=== PATIENT | male | born 1940 | race Caucasian/White ===

== ENCOUNTER 2017-11-06 14:12 | Outpatient (CLI) | payer MEDICARE, OTHER ==
[~2017-11-06 14:12] MED LIST: Gadobenate Dimeglumine 529 MG/1 ML (20ML VIAL) ONE
--- NOTE | 2017-11-06 16:26 | RAD ---
LUMBAR SPINE SERIES TWO VIEWS: History: Low back pain. History of previous surgeries. Comparison: 07-09-14 FINDINGS: Post-operative changes of the spine are noted. This includes bilateral pedicle screw placement at the L3-4 level. Disc implant is seen within the intervening disc space. Post-operative changes are also noted at L2-3 with right sided screws traversing these disc levels and markers of the disc implant wi thin the confines of the disc level. There is also evidence for posterolateral fusion type changes. T he changes along the left SI joint are stable. Laminectomy changes at L5 are seen. IMPRESSION: Stable post op changes of the spine. POS: [facility]
--- NOTE | 2017-11-06 17:58 | RAD ---
CERVICAL SPINE SERIES FOUR VIEWS WITH FLEXION AND EXTENSION : 11/06/17 HISTORY: Patient having right hand numbness. The bones appear slightly demineralized but some of this appears technique related. There is severe d isc narrowing at C5-6 and C6-7 levels. There is restricted motion in flexion or extension of the lowe r cervical spine. Minimal anterolisthesis develops at C4-5 in flexion. IMPRESSION: Arthritic changes of the lower cervical spine. POS: [facility]
--- NOTE | 2017-11-06 18:31 | MRI ---
MRI CERVICAL SPINE NONCONTRAST: Date: 11/06/17 HISTORY: 77-year-old male with cervical radiculopathy. M54.12. COMPARISON: No prior MRIs of the cervical spine. FINDINGS: Most of the images are degraded by patient motion. Vertebral body heights are maintained. C1-2: No high grade central stenosis, as seen on sagittal images. C2-3: Only imaged on sagittal sequences. Not included on axial images. Central disc-osteophyte complex slig htly indents the ventral aspect of the spinal cord. Thickened ligamentum flavum almost contacts the p osterior aspect of the spinal cord. Without axial images, the degree of central spinal canal stenosis is difficult to estimate, but based on the sagittal images, it is at least moderate, and possibly se fernando. Mild to moderate bilateral degenerative facet changes. Very difficult to evaluate the degree of neural foraminal stenosis without axial images. C3-4: Broad based mild disc-osteophytic bar complex abuts the ventral surface of the spinal cord. Thickened ligamentum flavum. Overall moderate to severe central spinal canal stenosis. Bilateral uncinate proc ess osteophytes. Moderate left degenerative facet changes. Bilateral severe neural foraminal stenosis . C4-5: Broad based disc-osteophytic bar complex indents the ventral surface of the spinal cord. Thickened li gamentum flavum abuts the dorsal surface of the spinal cord. The CSF signal is almost completely effa sarai. Severe central spinal canal stenosis, worse than at the C3-4 level. Severe bilateral neural fora lasha stenosis, left greater than right. Moderate left degenerative facet changes. Right facet comple x not completely imaged. C5-6: Slight degenerative retrolisthesis of C5 on C6. Broad based disc-osteophytic bar complex indents the ventral surface of the spinal cord. No ligamentum flavum thickening. Moderate central spinal canal st enosis. Bilateral uncinate process osteophytes. Severe bilateral neural foraminal stenosis, right wor se than left. Right facet joint incompletely imaged. Mild left degenerative facet changes. C6-7: Ankylosis across obliterated disc space. Bilateral moderate size uncinate process osteophytes. Mild t o moderate right neural foraminal stenosis. Mild left neural foraminal stenosis. Ankylosis of the rig ht facet joint. Normal left facet joint. No central stenosis. C7-T1: Small right paracentral focal disc protrusion or disc-osteophyte complex. Mild bilateral degenerative facet changes. Ligamentum flavum thickening. Mild central spinal canal stenosis. Moderate bilateral neural foraminal stenosis. IMPRESSION: 1. 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 2. Ankylosis across the C6-7 (now obliterated) disc space, and ankylosis of right C6-7 facet joint. 3. High grade central spinal canal stenosis at all levels from C2-3 through C7-T1, except for C6-7 l evel. 4. Multilevel high grade bilateral neural foraminal stenosis, including severe. POS: [facility]
--- NOTE | 2017-11-06 18:49 | MRI ---
MRI OF THE LUMBAR SPINE WITH AND WITHOUT CONTRAST 11/06/17 COMPARISON: 07/20/15. HISTORY: Low back pain. Previous back surgery x9. TECHNIQUE: MRI of the lumbar spine is performed without and with intravenous gadolinium administration. Multiseq uential, multiplanar imaging is performed. FINDINGS: The previously noted edema at the L2-3 level is not evident. There is no significant STIR hyperintens ity to suggest vertebral body edema or ligamentous injury. Evaluation of the lumbar spine is limited by metallic susceptibility artifact at the L2, L3, L4 levels. There is fusion of the lumbar spine fro m L2-L3 through L5-S1. Overall, there is appropriate T1 marrow signal intensity of the lumbar vertebr ae. On the postcontrast images, no obvious abnormal enhancement. There is symmetric signal intensity of the psoas muscles. The visualized solid organs are unremarkabl e. The conus medullaris terminates at the L1 level. On the postcontrast images, there is no abnormal enh ancement within the thecal sac including the cauda equina. There is stable septation with two separat e T2 hyperintensities in the thecal sac at the L4-L5 level. The thecal sac is empty at the L3-L4 disc space level down to the visualized upper sacrum. The findings are similar to the previous examinatio n. T12-L1: No high grade central canal stenosis. Moderate bilateral neural foraminal narrowing. L1-L2: Generalized disc bulge, ligamentum flavum thickening and facet hypertrophy result in mild to m oderate central canal stenosis. A component of central canal stenosis appears to be due to posterior epidural fat. Severe bilateral neural foraminal narrowing. L2-L3: There appears to be fusion changes as well as posterior decompressive laminectomy defects. Mod erate central canal stenosis is suspected. Mild bilateral foraminal narrowing. L3-L4: There are fusion changes. The thecal sac appears deformed posteriorly and laterally. There is a T2 hyperintense lesion which causes the nerve roots to extend to the periphery of the central spina l canal. There is resultant severe deformity essentially stenosis of the thecal sac. Moderate bilater al foraminal narrowing. L4-L5: There appears to be a septated cystic lesion that occupies the majority of the central spinal canal. The nerve roots appear to be displaced laterally. Findings are similar to the previous examina tion. Neural foramina are patent bilaterally. Posterior decompressive laminectomy defects are identif ied. L5-S1: There is a T2 hyperintense lesion that occupies the majority of the central spinal canal displ aces the nerve roots laterally. Septation is noted. Posterior decompressive changes are noted. Mild b ilateral foraminal narrowing. IMPRESSION: 1. Essentially stable postsurgical changes. 2. Stable appearance of the central spinal canal with lateral displacement of the nerve roots. T he central spinal canal is occupied by predominantly T2 hyperintense lesion. Septations are identifie d. These septations do have some subtle components of enhancement. Findings maybe due to a stable cys tic mass within the central spinal canal vs. 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 POS: [facility]
== END 2017-11-06 14:13 | disposition home or self-care (01) ==
LOC: TBSIIMAG 14:12
PROVIDERS: ATTEND Neurological Surgery
DX: M47.22 Other spondylosis with radiculopathy, cervical region (principal); M54.16 Radiculopathy, lumbar region; M89.9 Disorder of bone, unspecified; M50.10 Cervical disc disorder with radiculopathy, unspecified cervical region; M43.22 Fusion of spine, cervical region; M48.02 Spinal stenosis, cervical region; M99.81 Other biomechanical lesions of cervical region; Z98.890 Other specified postprocedural states
CPT/HCPCS: 72050; 72110; 72141; 72158; 82565; A9579

== ENCOUNTER 2019-04-01 13:17 | Inpatient (IN) | payer MEDICARE ==
[2019-04-01 14:06] LABS: #Basophils 0.1 thou/uL (0.0-0.2); #Eosinphils 0.4 thou/uL (0.0-0.7); #Lymphocytes 1.2 thou/uL (1.20-3.40); #Monocytes 0.5 thou/uL (0.11-0.59); #Neutrophils 7.7 thou/uL (1.40-6.50); %Basophils 0.8 % (0.0-1.0); %Eosinophils 3.7 % (0.0-10.0); %Lymphocytes 12.6 % (21.0-51.0); %Monocytes 5.1 % (0.0-10.0); %Neutrophils 77.8 % (42.0-75.0); Hemoglobin 12.5 g/dL (14.0-18.0); Mean Corpuscular HGB CONC 34.6 g/dL (32.0-36.0); Mean Corpuscular Hemoglobin 34.6 pg (27.0-31.0); Mean Corpuscular Volume 99.8 fL (78.0-98.0); Platelet Count 367 thou/uL (130-400); RBC Distribution Width 12.1 % (11.5-14.5); Red Blood Cell (RBC) Count 3.62 mill/uL (4.70-6.10); White Blood Cell (WBC) Count 9.9 thou/uL (4.8-10.8)
--- NOTE | 2019-04-01 14:06 | RAD ---
EXAM: Single view of the chest HISTORY: Cough COMPARISON: 09/13/2014 FINDINGS: Single view of the chest shows a normal sized cardiomediastinal silhouette. There is no ind[place] dence of consolidation, mass, or pleural effusion. The bones are unremarkable. IMPRESSION: No evidence of acute cardiopulmonary disease
[2019-04-01 14:31] LABS: ALT (SGPT) 23 U/L (8-55); AST (SGOT) 21 U/L (5-34); Albumin 3.4 g/dL (3.4-4.8); Alkaline Phosphatase 132 U/L (40-110); Anion Gap 12 mmol/L (10-20); BUN (Urea Nitrogen) 20 mg/dL (8.4-25.7); Bilirubin, Total 0.5 mg/dL (0.2-1.2); Calc. Creatinine Clearance 0 mL/min (70-130); Calcium 8.4 mg/dL (7.8-10.44); Carbon Dioxide 24 mmol/L (23-31); Chloride 99 mmol/L (98-107); Estimated GFR-MDRD 51; Globulin 2.8 g/dL (2.4-3.5); Glucose 480 mg/dL (83-110); Potassium 4.7 mmol/L (3.5-5.1); Protein, Total 6.2 g/dL (5.8-8.1); Sodium 130 mmol/L (136-145)
[2019-04-01 15:34] LABS: Magnesium 1.7 mg/dL (1.6-2.6)
--- NOTE | 2019-04-01 15:47 | CT ---
CT head noncontrast HISTORY: Weakness. Fall. COMPARISON: 03/16/2015. FINDINGS: There is no evidence of acute intracranial hemorrhage. Now within the posterolateral aspect of the left cerebellar hemisphere is a well-circumscribed, somewhat lobular focus of decreased density and measures up to 1.5 cm length by 0.6 cm width. Involving the rocky just to the left of midl ine, a 0.6 cm ill-defined focus of decreased density has occurred since the prior exam. Chronic ischemic small vessel disease is apparent throughout the periventricular white matter of each cerebral hemisphere. No significant mass effect. Ventricles are within normal limits. Visualized paranasal sinuses remain well aerated. There is calcification within the arterial structur es. IMPRESSION: Since the 2016 exam, small infarcts have appeared at the rocky and left cerebellar hemisph ere. No acute process is reliably demonstrated on noncontrast enhanced CT. Prominent chronic ischemic small vessel disease. Atherosclerosis.
[2019-04-01 16:41] LABS: Bacteria/HPF None Seen HPF (None Seen); Bilirubin Negative (Negative); Blood, Urine Negative (Negative); Clarity Clear (Clear); Glucose, Urine (Dipstick) Greater than 1000 mg/dL (Negative); Leukocyte Negative Leu/uL (Negative); Nitrite Negative (Negative); Protein, Urine (Dipstick) 200 mg/dL (Neg-Trace); RBC/HPF None Seen HPF (0-3); Squamous Epithelial None Seen HPF (0-3); Urobilinogen Normal mg/dL (Less than 2); WBC/HPF 0-3 HPF (0-3)
[2019-04-01] MEDS ORDERED: Aspirin Chewable 81 MG TAB ONE (16:52)
[2019-04-01] MEDS ORDERED: hydrALAZINE 20 MG/ML VIAL ONE (17:22)
[2019-04-01] MEDS ORDERED: Labetalol HCl 100 MG/20 ML VIAL SLOW IVP PRN (18:05)
[2019-04-01] MEDS ORDERED: hydrALAZINE 20 MG/ML VIAL SLOW IVP PRN (18:05)
[2019-04-01] MEDS ORDERED: Dextrose 50% Abboject 50 ML SYRINGE SLOW IVP PRN (18:13)
[2019-04-01] MEDS ORDERED: Dextrose 5% in Water 1,000 ML IV PRN (18:13)
[2019-04-01] MEDS ORDERED: Insulin Regular 300 UNITS/3 ML VIAL SC PRN (18:13)
--- NOTE | 2019-04-01 18:32 | PDOC.HHP ---
Hospitalist HPI - History of Present Illness Frequent falls History of Present Illness: PCP: Unknown The patient is a poor historian and no family was at bedside, so the majority of information was taken from the ER note. The patient is a 79/M with PMH significant for HTN (non comliance), HLD, DMII, and chronic back pain that presents to ER for above complaint. Apparently the patient was found down at home by his caregiver and EMS was called. EMS reported patient to be to weak to stand and slow to respond verbally to commands. The patient was afebrile, hypertensive 202/98, with Blood glucose of 293. The patient was given 500 ml saline bolus and brought to the ER. ED Course: BP: 189/104, Pulse: 72, Resp: 16, Pain: 0, O2 sat: 98 on (Room Air), Time: 2019 13:27 EKG NSR, RBBB, no ST elevations CXR negative for acute cardiopulmonary process Troponin negative CT brain: Since the 2016 exam, small infarcts have appeared at the rocky and left cerebellar hemisphere. No acute process is reliably demonstrated on noncontrast enhanced CT. Na 130, baseline 138 creatinine 1.35, baseline 1.16 Hydralazine 10mg IVP Given ASA 324 and 1L NS Hospitalist ROS - Review of Systems ROS unobtainable: due to mental status (No family at bedside.) Hospitalist History - Past Medical History Source: RN notes reviewed Cardiac: reports: HTN, Hyperlipidemia Musculoskeletal: reports: Other (Chronic back pain) Endocrine: reports: Diabetes - Past Surgical History Past Surgical History: reports: Cataract Removal Other Surgical History: Back x 9, left hand, right writ, left knee, bilateral elbows - Family History Other Family History: unable to obtain d/t AMS - Social History Smoking Status: Smokes 0-10 cigs daily (according to ER note) Tobacco Type: cigarettes Alcohol: reports: None Drugs: reports: none Living Situation: Alone Occupation: lives in [place] Activity level: independent ambulation (frequent falls) - Exam General Appearance: NAD, awake alert Eye: PERRL, anicteric sclera ENT: no oropharyngeal lesions, moist mucosa ENT - other findings: abrasions to forehead Neck: supple, no JVD, no thyromegaly, no lymphadenopathy Heart: RRR, no murmur, no gallops, no rubs, normal peripheral pulses Respiratory: CTAB, no wheezes, no rales, no ronchi Gastrointestinal: soft, non-tender, non-distended, normal bowel sounds, no guarding, no rigidity Extremities: no cyanosis, no edema Skin: no rashes Skin - other findings: Multiple abrasions to forehead, bilateral lower extremities Neurological: cranial nerve grossly intact, no focal deficits Neurological - other findings: GCS 15, A&O x3, difficulty with remote memory Psychiatric: oriented to person, oriented to place, flat affect Hospitalist Results - Labs Result Diagrams: 04/01/19 13:59 04/01/19 13:59 Lab results: WBC 9.9 thou/uL (4.8-10.8) 04/01/19 13:59 Hgb 12.5 g/dL (14.0-18.0) L 04/01/19 13:59 Hct 36.2 % (42.0-52.0) L 04/01/19 13:59 MCV 99.8 fL (78.0-98.0) H 04/01/19 13:59 Plt Count 367 thou/uL (130-400) 04/01/19 13:59 Neutrophils % 77.8 % (42.0-75.0) H 04/01/19 13:59 Sodium 130 mmol/L (136-145) L 04/01/19 13:59 Potassium 4.7 mmol/L (3.5-5.1) 04/01/19 13:59 Chloride 99 mmol/L (98-107) 04/01/19 13:59 Carbon Dioxide 24 mmol/L (23-31) 04/01/19 13:59 BUN 20 mg/dL (8.4-25.7) 04/01/19 13:59 Creatinine 1.35 mg/dL (0.7-1.3) H 04/01/19 13:59 Glucose 480 mg/dL (83-110) H 04/01/19 13:59 Calcium 8.4 mg/dL (7.8-10.44) 04/01/19 13:59 Total Bilirubin 0.5 mg/dL (0.2-1.2) 04/01/19 13:59 AST 21 U/L (5-34) 04/01/19 13:59 ALT 23 U/L (8-55) 04/01/19 13:59 Alkaline Phosphatase 132 U/L (40-110) H 04/01/19 13:59 Creatine Kinase 114 U/L (30-200) 04/01/19 13:59 Troponin I 0.020 ng/mL (< 0.028) 04/01/19 13:59 Serum Total Protein 6.2 g/dL (5.8-8.1) 04/01/19 13:59 Albumin 3.4 g/dL (3.4-4.8) 04/01/19 13:59 Lipase 36 U/L (8-78) 04/01/19 13:59 Urine Ketones Negative mg/dL (Negative) 04/01/19 14:26 Urine Blood Negative (Negative) 04/01/19 14:26 Urine Nitrite Negative (Negative) 04/01/19 14:26 Ur Leukocyte Esterase Negative Dawn/uL (Negative) 04/01/19 14:26 Urine RBC None Seen HPF (0-3) 04/01/19 14:26 Urine WBC 0-3 HPF (0-3) 04/01/19 14:26 Ur Squamous Epith Cells None Seen HPF (0-3) 04/01/19 14:26 Urine Bacteria None Seen HPF (None Seen) 04/01/19 14:26 Additional comment: Laboratory Tests 04/01/19 13:59 Magnesium 1.7 Creatine Kinase 114 Lipase 36 - EKG Interpretation EKG: NSR RBB - Radiology Interpretation CT scan - head Status: report reviewed by me Chest x-ray Status: report reviewed by me Hospitalist H&P A/P - Plan Plan: Impression: Generalized weakness, multiple falls Hyponatremia, mild 130 Dehydration, mild HTN, chronic HLD, chronic DM II, chronic Tobacco abuse Chronic back pain Plan: athletic monitor MRI brain, echo, CD US check NH4, RPR, serum/urine DS, B12 and folate, TSH, FLP, HA1C orthostatics Consult neurology Consult PT/OT Continue ASA daily AC/HS accuchecks and mild sliding scale smoking cessation Restart home meds when reconciled CMP and CBC in am Full Code No DPOA at this time.
[2019-04-01 18:37] LABS: Acetaminophen Less than 6.0 mcg/mL (10.0-30.0); Alcohol Less than 10 mg/dL (Less than 10); Salicylate Less than 8.0 mg/dL (15.0-30.0)
[2019-04-01] MEDS ORDERED: Acetaminophen 325 MG TAB PO PRN (19:23)
[2019-04-01] MEDS ORDERED: Acetaminophen 650 MG Suppository PR PRN (19:23)
[2019-04-01] MEDS ORDERED: HYDROcodone/Acetaminophen 5/325 mg Tablet PO PRN ×2 (21:48)
[2019-04-01] MEDS ORDERED: Ondansetron PF 4 MG/2 ML Vial IVP PRN (21:48)
[2019-04-01] MEDS ORDERED: Ondansetron ODT 4 MG TAB SL PRN (21:48)
[2019-04-01] MEDS: Rosuvastatin 20 MG TAB PO SCH (22:41)
[2019-04-01 23:45] VITALS: BMI 17.6
[2019-04-01 23:51] LABS: Amphetamine Not Detected (NotDetected); Barbiturates Screen Not Detected (NotDetected); Benzodiazepine Screen Not Detected (NotDetected); Cocaine Metabolite Screen Not Detected (NotDetected); Medtox Control Line Valid? VALID (VALID); Medtox Reader # READER 4; Methadone Not Detected (NotDetected); Methamphetamine Not Detected (NotDetected); Opiate Screen Not Detected (NotDetected); Oxycodone Screen Not Detected (NotDetected); Phencyclidine (PCP) Not Detected (NotDetected); THC/Cannabinoid Screen Not Detected (NotDetected); Tricyclic Screen Not Detected (NotDetected)
[2019-04-02 04:42] LABS: #Basophils 0.1 thou/uL (0.0-0.2); #Eosinphils 0.5 thou/uL (0.0-0.7); #Lymphocytes 2.2 thou/uL (1.20-3.40); #Monocytes 0.9 thou/uL (0.11-0.59); #Neutrophils 9.1 thou/uL (1.40-6.50); %Basophils 0.7 % (0.0-1.0); %Lymphocytes 17.4 % (21.0-51.0); %Monocytes 6.7 % (0.0-10.0); %Neutrophils 71.2 % (42.0-75.0); Hemoglobin 11.9 g/dL (14.0-18.0); Mean Corpuscular HGB CONC 33.9 g/dL (32.0-36.0); Mean Corpuscular Hemoglobin 33.2 pg (27.0-31.0); Mean Corpuscular Volume 97.9 fL (78.0-98.0); Platelet Count 372 thou/uL (130-400); Red Blood Cell (RBC) Count 3.58 mill/uL (4.70-6.10); White Blood Cell (WBC) Count 12.8 thou/uL (4.8-10.8)
[2019-04-02 05:02] LABS: ALT (SGPT) 20 U/L (8-55); AST (SGOT) 19 U/L (5-34); Albumin 3.3 g/dL (3.4-4.8); Alkaline Phosphatase 120 U/L (40-110); Anion Gap 13 mmol/L (10-20); BUN (Urea Nitrogen) 16 mg/dL (8.4-25.7); Bilirubin, Total 0.6 mg/dL (0.2-1.2); Calc. Creatinine Clearance 43 mL/min (70-130); Calcium 8.5 mg/dL (7.8-10.44); Carbon Dioxide 21 mmol/L (23-31); Cardiac Risk 2.5 (Less than 4.5); Chloride 104 mmol/L (98-107); Cholesterol 136 mg/dl (< 200 Desired); Estimated GFR-MDRD 64; Globulin 2.7 g/dL (2.4-3.5); Glucose 192 mg/dL (83-110); HDL Cholesterol 55 mg/dL (>60 Neg Risk); LDL Cholesterol, Calculated 67 mg/dL; Potassium 3.7 mmol/L (3.5-5.1); Sodium 134 mmol/L (136-145); Triglycerides 71 mg/dL (Less than 150)
[2019-04-02] MEDS: HumaLOG 300 UNITS/3 ML VIAL SC PRN ×2 (06:40→17:42)
[2019-04-02] MEDS ORDERED: Labetalol HCl 100 MG/20 ML VIAL SLOW IVP PRN (07:51)
[2019-04-02] MEDS ORDERED: hydrALAZINE 20 MG/ML VIAL SLOW IVP PRN (07:51)
--- NOTE | 2019-04-02 08:12 | ULT ---
BILATERAL CAROTID DUPLEX ULTRASOUND: HISTORY: CVA TECHNIQUE: Grayscale, color-flow and spectral Doppler ultrasound imaging of the extracranial carotid artery syst ems was performed bilaterally. FINDINGS: Grayscale, color-flow, Doppler evaluation, spectral analysis of the bilateral carotid arteries is per formed with 2-D imaging. Calcified atherosclerotic plaque is seen region of the carotid bulbs and proximal internal carotid arteries bilaterally. There is no hemodynamically significant stenosis in the bilateral internal carotid arteries according to the peak systolic velocities and the ICA/CCA ratios. The peak systolic velocity in the right ICA measures 78 cm/s. The peak systolic velocity in the left ICA measures 81.7 cm/s. The right ICA/ CCA ratio is 0.73, and the left ICA/CCA ratio is 0.8. Vertebral arteries: Antegrade flow is demonstrated in the vertebral arteries bilaterally. IMPRESSION: No hemodynamically significant stenosis in the bilateral internal carotid arteries.
[2019-04-02] MEDS ORDERED: FLU VACC TS2019-20(65YR UP)/PF 180 MCG/0.5 ML SYRINGE IM ONE (09:00)
[2019-04-02] MEDS ORDERED: Prevnar 13-Val Conj/PF 0.5 ML SYRINGE IM ONE (09:00)
--- NOTE | 2019-04-02 10:07 | MRI ---
Exam: Brain MRI without contrast HISTORY: Possible falls. Left cerebellar local focus on CT. COMPARISON: None Correlation: Noncontrast head CT 04/01/2019 FINDINGS: Examination is limited due to motion degradation on multiple sequences Calvarial marrow signal intensity: Appropriate T1 signal Gradient echo sequence: No hemorrhage Brain parenchyma: No definite mass, mass effect or midline shift. Brain volume, age-appropriate. 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 Remote midline cavitary i nfarct corresponds to the recent CT finding. Sinuses: Adequate aeration of the paranasal sinuses and mastoid air cells. IMPRESSION: 1. Chronic small vessel ischemic changes white matter 2. Remote cavitary lacunar infarcts in the midbrain, corresponding to recent CT finding 3. Small foci of restricted diffusion in the left thalamus and left hernandez radiata.
[2019-04-02] MEDS: Gabapentin 300 MG CAP PO SCH ×3 (10:27→21:47)
[2019-04-02] MEDS: Aspirin 81 mg Enteric Coated Tablet PO SCH (10:27)
[2019-04-02] MEDS: Lisinopril 10 MG TAB PO SCH (10:46)
--- NOTE | 2019-04-02 12:41 | PDOC.HOSPP ---
- Subjective Encounter Date: 04/02/19 Encounter Time: 07:15 Subjective: Patient seen and examined. No new complaints. No overnight events - Objective Vital Signs & Weight: Vital Signs (12 hours) Temp Pulse Resp BP BP BP BP 04/02/19 12:30 62 04/02/19 11:31 98.2 F 62 18 150/78 H 04/02/19 10:46 183/90 H 04/02/19 07:36 98.1 F 73 16 160/92 H 04/02/19 04:48 170/97 H 208/109 H 181/82 H 04/02/19 04:00 98 F 74 16 BP Pulse Ox 04/02/19 12:30 04/02/19 11:31 97 04/02/19 10:46 04/02/19 07:36 97 04/02/19 04:48 04/02/19 04:00 195/95 H 98 Weight Weight 122 lb 8 oz I&O: 04/01/19 04/02/19 04/03/19 06:59 06:59 06:59 Intake Total 70 Output Total 100 Balance -30 Result Diagrams: 04/02/19 04:23 04/02/19 04:23 Additional Labs: Accuchecks 04/02/19 04/02/19 04/02/19 10:45 05:40 00:27 POC Glucose 135 H 213 H 224 H Radiology Reviewed by me: Yes EKG Reviewed by me: Yes Hospitalist ROS - Review of Systems ENT: denies: ear pain, ear discharge, nose pain, nose discharge, nose congestion , mouth pain, mouth swelling, throat pain, throat swelling, other Respiratory: denies: cough, dry, shortness of breath, hemoptysis, SOB with excertion, pleuritic pain, sputum, wheezing, other Cardiovascular: denies: chest pain, palpitations, orthopnea, paroxysmal noc. dyspnea, edema, light headedness, other Gastrointestinal: denies: nausea, vomiting, abdominal pain, diarrhea, constipation, melena, hematochezia, other Genitourinary: denies: dysuria, frequency, incontinence, hematuria, retention, other - Medication Medications: Active Medications Generic Name Dose Route Start Last Admin Trade Name Freq PRN Reason Stop Dose Admin Acetaminophen 650 mg 04/01/19 19:23 04/02/19 12:30 Tylenol PO 650 mg Q4H PRN Administration Headache/Fever/Mild Pain (1-3) Acetaminophen 650 mg 04/01/19 19:23 04/02/19 06:27 Tylenol TX 650 mg Q4H PRN Administration Headache/Fever/Mild Pain (1-3) Aspirin 81 mg 04/02/19 09:00 04/02/19 10:27 Ecotrin PO 81 mg DAILY CONSTANTINE Administration Gabapentin 300 mg 04/02/19 09:00 04/02/19 10:27 Neurontin PO 300 mg TID CONSTANTINE Administration Insulin Human Lispro 0 units 04/01/19 18:13 04/02/19 06:40 Humalog SC 3 unit .MILD SLIDING SCALE PRN Administration Mild Correctional Scale Labetalol HCl 20 mg 04/02/19 07:51 04/02/19 12:30 Normodyne SLOW IVP 20 mg Q1H PRN Administration SBP Greater Than 170 Lisinopril 10 mg 04/02/19 09:00 04/02/19 10:46 Zestril PO 10 mg DAILY CONSTANTINE Administration Rosuvastatin Calcium 40 mg 04/01/19 21:00 04/01/19 22:41 Crestor PO 40 mg HS CONSTANTINE Administration Sodium Chloride 10 ml 04/01/19 21:00 04/02/19 10:34 Flush - Normal Saline IVF 10 ml Q12HR CONSTANTINE Administration - Exam General Appearance: NAD, ill appearing Eye: PERRL, anicteric sclera ENT: normocephalic atraumatic, no oropharyngeal lesions Neck: supple, symmetric, no JVD, no thyromegaly Heart: RRR, no murmur, no gallops, no rubs Respiratory: CTAB, no wheezes, no rales Gastrointestinal: soft, non-tender, non-distended, normal bowel sounds Extremities: no cyanosis, no clubbing, no edema Skin: normal turgor Neurological: no focal deficits Musculoskeletal: normal tone, normal strength Psychiatric: normal affect, normal behavior Hosp A/P (1) Recurrent falls Code(s): R29.6 - REPEATED FALLS Status: Acute (2) Weakness Code(s): R53.1 - WEAKNESS Status: Acute (3) WESLEY (acute kidney injury) Code(s): N17.9 - ACUTE KIDNEY FAILURE, UNSPECIFIED Status: Acute (4) BPH (benign prostatic hyperplasia) Code(s): N40.0 - BENIGN PROSTATIC HYPERPLASIA WITHOUT LOWER URINRY TRACT SYMP Status: Chronic (5) Diabetes type 2, controlled Code(s): E11.9 - TYPE 2 DIABETES MELLITUS WITHOUT COMPLICATIONS Status: Chronic (6) Dyslipidemia Code(s): E78.5 - HYPERLIPIDEMIA, UNSPECIFIED Status: Chronic (7) GERD (gastroesophageal reflux disease) Code(s): K21.9 - GASTRO-ESOPHAGEAL REFLUX DISEASE WITHOUT ESOPHAGITIS Status: Chronic (8) HTN (hypertension) Code(s): I10 - ESSENTIAL (PRIMARY) HYPERTENSION Status: Chronic (9) Macrocytic anemia Code(s): D53.9 - NUTRITIONAL ANEMIA, UNSPECIFIED Status: Chronic - Plan old records reviewed/req, PT/OT, social services designee, speech therapy inpt rehab eval MRI report noted neuro to see check HbA1c PT/OT/ST
[2019-04-02] MEDS ORDERED: Clopidogrel Bisulfate 75 MG TAB PO SCH (17:15)
[2019-04-02 17:18] LABS: ANA Symphony (Qualitative) Negative (Negative); ANA Symphony (Quantitative) 0.2 Ratio (< 0.7 Negative); dsDNA IgG Antibody 1.3 IU/mL (<10 Negative)
[2019-04-02] MEDS: Rosuvastatin 20 MG TAB PO SCH (21:47)
[2019-04-03] MEDS: HumaLOG 300 UNITS/3 ML VIAL SC PRN ×3 (06:25→20:32)
[2019-04-03] MEDS: Lisinopril 10 MG TAB PO SCH (08:40)
[2019-04-03] MEDS: Aspirin 81 mg Enteric Coated Tablet PO SCH (08:40)
[2019-04-03] MEDS: Clopidogrel Bisulfate 75 MG TAB PO SCH (08:40)
[2019-04-03] MEDS: Gabapentin 300 MG CAP PO SCH ×3 (08:41→20:29)
--- NOTE | 2019-04-03 14:29 | PDOC.HOSPP ---
- Subjective Encounter Date: 04/03/19 Encounter Time: 07:30 Subjective: Patient seen and examined. No overnight events - Objective Vital Signs & Weight: Vital Signs (12 hours) Temp Pulse Resp BP BP Pulse Ox 04/03/19 11:40 98 F 73 16 134/77 98 04/03/19 08:40 122/77 04/03/19 07:43 99 F 64 16 149/75 H 96 04/03/19 03:48 98.9 F 65 16 155/80 H 95 Weight Admit Weight 122 lb Weight 122 lb 8 oz I&O: 04/02/19 04/03/19 04/04/19 06:59 06:59 06:59 Intake Total 70 1585 240 Output Total 100 450 Balance -30 1135 240 Result Diagrams: 04/02/19 04:23 04/02/19 04:23 Additional Labs: Accuchecks 04/03/19 04/03/19 04/02/19 10:40 05:52 20:38 POC Glucose 543 H 191 H 261 H 04/02/19 16:56 POC Glucose 373 H Radiology Reviewed by me: Yes EKG Reviewed by me: Yes Hospitalist ROS - Review of Systems ROS unobtainable: due to mental status - Medication Medications: Active Medications Generic Name Dose Route Start Last Admin Trade Name Freq PRN Reason Stop Dose Admin Acetaminophen 650 mg 04/01/19 19:23 04/02/19 12:30 Tylenol PO 650 mg Q4H PRN Administration Headache/Fever/Mild Pain (1-3) Acetaminophen 650 mg 04/01/19 19:23 04/02/19 06:27 Tylenol AL 650 mg Q4H PRN Administration Headache/Fever/Mild Pain (1-3) Aspirin 81 mg 04/02/19 09:00 04/03/19 08:40 Ecotrin PO 81 mg DAILY CONSTANTINE Administration Clopidogrel Bisulfate 75 mg 04/03/19 09:00 04/03/19 08:40 Plavix PO 75 mg DAILY CONSTANTINE Administration Gabapentin 300 mg 04/02/19 09:00 04/03/19 08:41 Neurontin PO 300 mg TID CONSTANTINE Administration Hydralazine HCl 10 mg 04/02/19 07:51 04/02/19 15:55 Apresoline SLOW IVP 10 mg Q4H PRN Administration SBP Greater Than 170 Insulin Human Lispro 0 units 04/01/19 18:13 04/03/19 12:28 Humalog SC 6 unit .MILD SLIDING SCALE PRN Administration Mild Correctional Scale Labetalol HCl 20 mg 04/02/19 07:51 04/02/19 12:30 Normodyne SLOW IVP 20 mg Q1H PRN Administration SBP Greater Than 170 Lisinopril 10 mg 04/02/19 09:00 04/03/19 08:40 Zestril PO 10 mg DAILY CONSTANTINE Administration Rosuvastatin Calcium 40 mg 04/01/19 21:00 04/02/19 21:47 Crestor PO 40 mg HS CONSTANTINE Administration Sodium Chloride 10 ml 04/01/19 21:00 04/03/19 08:41 Flush - Normal Saline IVF 10 ml Q12HR CONSTANTINE Administration - Exam General Appearance: NAD, awake alert Eye: PERRL, anicteric sclera ENT: normocephalic atraumatic, no oropharyngeal lesions Neck: supple, symmetric, no JVD, no thyromegaly Heart: RRR, no murmur, no gallops, no rubs Respiratory: CTAB, no wheezes, no rales, no ronchi Gastrointestinal: soft, non-tender, non-distended, normal bowel sounds Extremities: no cyanosis, no clubbing, no edema Skin: normal turgor, no lesions Neurological: no focal deficits Musculoskeletal: normal tone, normal strength Psychiatric: normal affect, normal behavior Hosp A/P (1) Acute CVA (cerebrovascular accident) Code(s): I63.9 - CEREBRAL INFARCTION, UNSPECIFIED Status: Acute (2) Recurrent falls Code(s): R29.6 - REPEATED FALLS Status: Acute (3) Weakness Code(s): R53.1 - WEAKNESS Status: Acute (4) WESLEY (acute kidney injury) Code(s): N17.9 - ACUTE KIDNEY FAILURE, UNSPECIFIED Status: Acute (5) BPH (benign prostatic hyperplasia) Code(s): N40.0 - BENIGN PROSTATIC HYPERPLASIA WITHOUT LOWER URINRY TRACT SYMP Status: Chronic (6) Diabetes type 2, controlled Code(s): E11.9 - TYPE 2 DIABETES MELLITUS WITHOUT COMPLICATIONS Status: Chronic (7) Dyslipidemia Code(s): E78.5 - HYPERLIPIDEMIA, UNSPECIFIED Status: Chronic (8) GERD (gastroesophageal reflux disease) Code(s): K21.9 - GASTRO-ESOPHAGEAL REFLUX DISEASE WITHOUT ESOPHAGITIS Status: Chronic (9) HTN (hypertension) Code(s): I10 - ESSENTIAL (PRIMARY) HYPERTENSION Status: Chronic (10) Macrocytic anemia Code(s): D53.9 - NUTRITIONAL ANEMIA, UNSPECIFIED Status: Chronic - Plan old records reviewed/req, PT/OT, social media assistant inpt rehab eval MRI report noted neuro to see check HbA1c PT/OT/ST 04/03/19 continue stroke team evaluation will need placement medication reviewed and continue to provide symptomatic treatment control diabetes
--- NOTE | 2019-04-03 18:13 | CON ---
DATE OF CONSULTATION: 04/03/2019 CONSULTING PHYSICIAN: Hospitalist Service. IMPRESSION: 1. Lacunar stroke on the left that appears new with a transient alteration of consciousness. 2. Extensive small-vessel ischemic changes, otherwise with some secondary dementia. 3. Hypertension. 4. Diabetes. 5. Chronic low back pain. PLAN: 1. Continue aspirin, Plavix, and Crestor. 2. PT evaluation to determine whether inpatient rehab is needed. HISTORY OF PRESENT ILLNESS: Mr. Kellogg is a 79-year-old gentleman from the [place] area. He apparently came in with a change of mental status. He was apparently having frequent falls also and his initial CT scan of the brain, which showed some chronic ischemic changes in the rocky and cerebellum. Followup MRI of the brain showed a new ischemic event in the left thalamus and hernandez radiata. His EKG was in a sinus rhythm. His echocardiogram shows a normal ejection fraction. His carotid ultrasounds were clear. He was quite lethargic yesterday, but has improved since then. He apparently is looked after by 2 of his nieces. They were not available for any further history at this point, reportedly is still living in his own home in [place]. PAST MEDICAL HISTORY: As listed above. ALLERGIES: PENICILLIN. SOCIAL HISTORY: Some tobacco use. FAMILY HISTORY: Noncontributory. REVIEW OF SYSTEMS: Ten-system review of systems is otherwise negative. PHYSICAL EXAMINATION: VITAL SIGNS: Pulse 65, in sinus rhythm and respirations 16. HEENT: Pupils are equal. Conjunctivae are clear. The small abrasion on his forehead, is bit disheveled in appearance in regard to his facial hair and such. NECK: Supple. EXTREMITIES: Multiple areas of abrasions on both legs. No edema is present. NEUROLOGIC: He was alert and cooperative. His speech is fluent and clear. He is oriented to person only. He did not know the month, but did know the year. He is able to follow commands reasonably well. Cranial nerves are intact. He had good strength bilaterally with antigravity capacity. Sensation is intact to touch. Rapid alternating movements are mildly slowed. Gait is not tested, but reportedly he walked 8 feet with a rolling walker and minimal assist. No abnormal movements are seen. SUMMARY: This is an elderly gentleman with extensive small vessel disease and recent lacunar stroke in the left thalamus and hernandez radiata. His deficits are minimal. His cognitive impairment is an issue, probably need closer monitoring at home. I agree with current treatment plan along with the addition of Plavix. Job ID: [id number]
[2019-04-03] MEDS: Rosuvastatin 20 MG TAB PO SCH (20:29)
[2019-04-03 23:12] LABS: Anion Gap 12 mmol/L (10-20); BUN (Urea Nitrogen) 22 mg/dL (8.4-25.7); Calc. Creatinine Clearance 41 mL/min (70-130); Calcium 8.2 mg/dL (7.8-10.44); Carbon Dioxide 23 mmol/L (23-31); Chloride 103 mmol/L (98-107); Estimated GFR-MDRD 60; Glucose 139 mg/dL (83-110); Magnesium 1.9 mg/dL (1.6-2.6); Sodium 134 mmol/L (136-145)
[2019-04-04] MEDS: Clopidogrel Bisulfate 75 MG TAB PO SCH (09:07)
[2019-04-04] MEDS: Gabapentin 300 MG CAP PO SCH (09:07)
[2019-04-04] MEDS: Aspirin 81 mg Enteric Coated Tablet PO SCH (09:07)
[2019-04-04] MEDS: Lisinopril 10 MG TAB PO SCH (09:07)
[2019-04-04] MEDS: HumaLOG 300 UNITS/3 ML VIAL SC PRN (11:12)
[2019-04-04 11:38] VITALS: BP 161/76; TEMP 99.8
[2019-04-05] MEDS ORDERED: glipiZIDE 5 MG TAB PO SCH ×2 (07:30)
--- NOTE | 2019-04-06 10:16 | DIS ---
DATE OF ADMISSION: 04/02/2019 DATE OF DISCHARGE: 04/04/2019 PRIMARY CARE PHYSICIAN: Jeremy Otero MD DISCHARGE DISPOSITION: Rehab. PRIMARY DISCHARGE DIAGNOSES: 1. Acute cerebrovascular accident. 2. Uncontrolled diabetes. SECONDARY DISCHARGE DIAGNOSES: Macrocytic anemia, hypertension, gastroesophageal reflux disease, dyslipidemia, diabetes type 2, benign enlargement of prostate, anxiety and depression, recurrent falls, and generalized weakness. PRIMARY PROCEDURE/OPERATION: None. RADIOLOGICAL INVESTIGATION: Chest x-ray unremarkable. CT brain showed new rocky and left cerebellar hemisphere infarct. Echocardiography showed normal EF with diastolic dysfunction. MRI brain showed new lacunar infarct in the midbrain as well as left thalamus and left coronal radiata. Carotid Doppler negative for any stenosis. SIGNIFICANT LABORATORY DATA: WBC 12.8, hemoglobin 11.9, and platelet 372. Sodium 134, creatinine 1.18, calcium 8.2, and magnesium 1.9. Urinalysis showed glucosuria, proteinuria. Urine drug screen negative. Serum drug screen negative. LAUREL negative. Urine culture negative. DISCHARGE MEDICATIONS: 1. Gabapentin 300 mg p.o. t.i.d. 2. Lisinopril 10 mg daily. 3. Metformin 500 mg p.o. b.i.d. 4. Omeprazole 40 mg daily. 5. Aspirin 81 mg daily. 6. Lipitor 40 mg p.o. at bedtime. 7. Plavix 75 mg p.o. daily. 8. Glipizide 2.5 mg p.o. daily. 9. Humalog insulin as per sliding scale. CONTRAINDICATION: None. CODE STATUS: Full code. INPATIENT CAR DELIVERER: Dr. Leung for Neurology was consulted while in hospital. TEST RESULT PENDING ON DISCHARGE: None. ALLERGIES: PENICILLIN. DISCHARGE PLAN: Posthospital, the patient will follow up with primary care physician in one week. HOSPITAL COURSE: A 79-year-old male, who was having weakness predominantly on the right side and he was having frequent fall. In the emergency room, the patient was found with new stroke in left cerebellum and rocky. Subsequently, the patient was admitted to stroke floor. He had echocardiography which showed diastolic dysfunction. MRI brain showed lacunar stroke in left thalamus. The patient also has extensive chronic ischemic white matter changes patient was evaluated by Neurology and Stroke Team. Neurology recommended to add Plavix on his regimen. Rest of stroke workup neck came back negative we added aspirin, Plavix, and Lipitor on his regimen. The patient is given the patient will continue all other previous medication his blood sugar was not well controlled and that is why we added glipizide 2.5 mg p.o. daily. The patient was qualified for inpatient rehabilitation and with help of high risk case manager, we arranged inpatient rehab for more PT/OT and strain. The patient will follow up with primary care physician after rehabilitation. The patient is seen and examined at bedside today. PHYSICAL EXAMINATION: VITAL SIGNS: Currently, temperature 98.1, pulse 60, respiratory rate 20, saturation 98% on room air, blood pressure 156/82 weight 122 pounds general the patient is currently alert, awake, no acute distress. HEAD: Normocephalic and atraumatic. NECK: Supple. No JVD. No meningeal signs of irritation. LUNGS: Clear to auscultation without any rhonchi or rales. CARDIAC: S1 and S2 regular. No murmur. No gallop. No rub. ABDOMEN: Soft, bowel sounds present, nontender, nondistended. No organomegaly. No mass. EXTREMITIES: No edema. NEUROLOGIC: Nonfocal examination. At this point, the patient has some weakness, but borjas was significantly improved from admission. Paperwork for discharge done and discharge medication reconciliation done. Job ID: [id number]
--- NOTE | 2019-04-07 06:03 | PQF ---
NICOLE MASCORRO SALIM NOORJIBHAI MD [id number] [address] [place] [address] [id number] CLINICAL DOCUMENTATION CLARIFICATION FORM: POST DISCHARGE Addendum to original discharge summary date: ____ Late entry note date: __ DATE:04/07/2019 ATTN: Rach Julian Please exercise your independent, professional judgment in responding to the clarification form. Clinical indicators are provided on the bottom of this form for your review Please check appropriate box(s): [ x ] Encephalopathy: Etiology: [ ] Hypertensive [ x ] Metabolic [ ] Toxic [ ] in the setting of underlying dementia [ x ] Other (please specify) [ ] Transient Alteration of Awareness [ x] Other diagnosis _cva [ ] Unable to determine In addition, please specify: Present on Admission (POA): [x ] Yes [ ] No [ ] Unable to determine For continuity of documentation, please document condition throughout progress notes and discharge summary. Thank You. CLINICAL INDICATORS - SIGNS / SYMPTOMS / LABS Laboratory 04/01 Sodium 130, Creatinine 1.35, BUN 20, POC glucose 480, Alakline phosphatase 132 NIH score 04/01 Total of 2 Vital signs 04/02 BP 189/104, Pulse 72, Resp 16 MRI brain 04/02 Impression: Remote cavitary lacunar infarcts in midbrain, corresponding to recent CT findings Hospitalist H&P p1 04/02 Dashawn GLOVER Apparently the patient was found down at home by his caregiver and EMS was called. EMS reported pt to be weak to stand and slow to response verbally to commands Consult p1 04/03 Dr Leung Lacunar stroke on the left that appears new with a transient alteration of consciousness RISK FACTORS Hospitalist H&P p1 04/02 - 79 year old male Hospitalist H&P p1 04/02 HTN Hospitalist H&P p1 04/02 DM II Hospitalist H&P p1 04/02 HLD Hospitalist H&P p2 04/02 Smokes 0-10cigs daily Hospitalist H&P p4 04/02 hyponatremia Hospitalist H&P p4 04/02 dehydration Hospitalist H&P p4 04/02 WESLEY Consult p1 04/03 Lacunar Infarct Consult p1 04/03 Dementia TREATMENTS: Apr 06 IB NS 500ml bolus Apr 06 -Aspirin Chewable 81 mg APR 06 Insulin 6units APR 06 IVF 1L Apr 06 Plavix 75mg po APR 06 Neurontin 33mg APR 06 Lisinopril 10 mg MRI brain ordered 04/02 Neurology consult 04/03 Paresh Leung (This form is maintained as a part of the permanent medical record) 2014 [employer] All Rights Reserved [email or web address]
== END 2019-04-04 12:42 | DRG 64 ==
LOC: ERS 13:17 → 2SE 21:51 → OBSVTOIN 04-02 17:05
PROVIDERS: ADMIT Internal Medicine; ATTEND Internal Medicine
PROC: 3E0234Z Introduction of Serum, Toxoid and Vaccine into Muscle, Percutaneous Approach (ICD-10-PCS; principal; 2019-04-02)
PROC: 3E02340 Introduction of Influenza Vaccine into Muscle, Percutaneous Approach (ICD-10-PCS; 2019-04-02)
DX: I63.81 Other cerebral infarction due to occlusion or stenosis of small artery (principal); G93.41 Metabolic encephalopathy; G81.91 Hemiplegia, unspecified affecting right dominant side; E87.1 Hypo-osmolality and hyponatremia; N17.9 Acute kidney failure, unspecified; E11.65 Type 2 diabetes mellitus with hyperglycemia; E78.5 Hyperlipidemia, unspecified; K21.9 Gastro-esophageal reflux disease without esophagitis; N40.0 Benign prostatic hyperplasia without lower urinary tract symptoms; F41.9 Anxiety disorder, unspecified; F32.9 Major depressive disorder, single episode, unspecified; D53.9 Nutritional anemia, unspecified; R29.6 Repeated falls; F17.210 Nicotine dependence, cigarettes, uncomplicated; G89.29 Other chronic pain; M54.9 Dorsalgia, unspecified; E86.0 Dehydration; F03.90 Unspecified dementia, unspecified severity, without behavioral disturbance, psychotic disturbance, mood disturbance, and anxiety; R29.702 NIHSS score 2; Z88.0 Allergy status to penicillin; Z91.19 Patient's noncompliance with other medical treatment and regimen; Z23 Encounter for immunization; Z79.899 Other long term (current) drug therapy; Z79.84 Long term (current) use of oral hypoglycemic drugs
CPT/HCPCS: 36415; 36416; 70450; 70551; 71045; 80048; 80053; 80061; 80306; 80307; 81003; 81015; 82140; 82550; 82607; 82746; 83690; 83735; 83880; 84443; 84484; 85025; 86038; 86225; 87086; 90471; 90662; 90670; 93005; 93306; 93880; 96361; 96374; G0008; G0009; J0360

== ENCOUNTER 2024-08-20 18:51 | Inpatient (IN) | payer MEDICARE, MEDICAID ==
[~2024-08-20 18:51] MED LIST changes: -Gadobenate Dimeglumine 529 MG/1 ML (20ML VIAL) ONE; +Iopamidol-370 76% 500 ML MDV (1 ML CHARGE) ONE
[2024-08-20 19:45] LABS: Actual Bicarbonate (HCO3v) 17.8 mEq/L (22-28); Base Excess -5.5 mEq/L (-2.0 to +3.0); Calcium, Ionized (venous) 1.09 mmol/L (1.16-1.32); Chloride (VBG) 106 mmol/L (98-106); Hematocrit-VBG 35 % (42.0-52.0); Hemoglobin (Hb) 11.9 g/dL (12.6-17.4); Potassium (VBG) 3.25 mmol/L (3.70-5.30); Sodium 139 mmol/L (133-146)
[2024-08-20 19:49] LABS: #Basophils 0.04 10x3/uL (0.0-0.2); #Eosinophils Less than 0.03 10x3/uL (0.0-0.7); #Monocytes 1.24 10x3/uL (0.11-0.59); #Neutrophils 20.33 10x3/uL (1.40-6.50); %Basophils 0.2 % (0.0-1.0); %Eosinophils 0.0 % (0.0-10.0); %Lymphocytes 5.3 % (21.0-51.0); %Monocytes 5.4 % (0.0-10.0); %Neutrophils 88.1 % (42.0-75.0); Hematocrit 29.4 % (42.0-52.0); Hemoglobin 9.9 g/dL (14.0-18.0); Mean Corpuscular Hemoglobin 32.1 pg (27.0-31.0); Mean Corpuscular Volume 95.5 fL (78.0-98.0); Platelet Count 332 10x3/uL (130-400); Red Blood Cell (RBC) Count 3.08 mill/uL (4.70-6.10); White Blood Cell (WBC) Count 23.07 10x3/uL (4.8-10.8)
[2024-08-20 20:08] LABS: ALT (SGPT) 10 U/L (Less than 45); AST (SGOT) 15 U/L (11-34); Albumin 2.7 g/dL (3.1-4.5); Alkaline Phosphatase 98 U/L (40-110); Anion Gap 15 mmol/L (10-20); BUN (Urea Nitrogen) 62 mg/dL (8.4-25.7); Bilirubin, Total 0.3 mg/dL (0.3-1.2); Calc. Creatinine Clearance 0 mL/min (70-130); Calcium 8.1 mg/dL (7.8-10.44); Carbon Dioxide 19 mmol/L (23-31); Chloride 110 mmol/L (98-107); Globulin 3.5 g/dL (2.4-3.5); Glucose 303 mg/dL (83-110); Lipase 31 U/L (8-78); Magnesium 1.7 mg/dL (1.6-2.6); Potassium 3.3 mmol/L (3.5-5.1); Sodium 141 mmol/L (136-145)
[2024-08-20 20:12] LABS: Troponin I 0.086 ng/mL (< 0.028)
[2024-08-20 20:38] LABS: CAUTI Indications for Culture Alt mental st,lethar; Glucose, Urine (Dipstick) Greater than 1000 mg/dL (Negative); Leukocyte 500 Leu/uL (Negative); Protein, Urine (Dipstick) 30 mg/dL (Neg-Trace); Specific Gravity, Urine 1.016 (1.002-1.036); WBC/HPF Greater than 50 HPF (0-3)
[2024-08-20 20:42] LABS: Bacteria/HPF 1+ HPF (None Seen)
[2024-08-20 20:43] LABS: Urine Culture Reflex Yes Yes
[2024-08-20] MEDS ORDERED: cefTRIAXone (ROCEPHIN) 1 GM VIAL ONE (21:02)
[2024-08-20] MEDS ORDERED: metroNIDAZOLE 500 MG (100 mL) BAG ONE (21:57)
[2024-08-20] MEDS ORDERED: Dextrose 50% Abboject 50 ML SYRINGE SLOW IVP PRN (23:39)
[2024-08-20] MEDS ORDERED: Acetaminophen 325 MG TAB PO PRN (23:39)
[2024-08-20] MEDS ORDERED: Glucagon 1 MG/ML KIT IM PRN (23:39)
[2024-08-21 00:38] LABS: Troponin I 0.099 ng/mL (< 0.028)
[2024-08-21 06:40] LABS: ALT (SGPT) 12 U/L (Less than 45); AST (SGOT) 31 U/L (11-34); Albumin 2.7 g/dL (3.1-4.5); Alkaline Phosphatase 87 U/L (40-110); Anion Gap 15 mmol/L (10-20); BUN (Urea Nitrogen) 52 mg/dL (8.4-25.7); Bilirubin, Total 0.3 mg/dL (0.3-1.2); Calc. Creatinine Clearance 27 mL/min (70-130); Calcium 8.4 mg/dL (7.8-10.44); Carbon Dioxide 14 mmol/L (23-31); Chloride 115 mmol/L (98-107); Globulin 3.9 g/dL (2.4-3.5); Glucose 244 mg/dL (83-110); Potassium 3.7 mmol/L (3.5-5.1); Sodium 140 mmol/L (136-145)
[2024-08-21] MEDS: Heparin 5,000 UNITS/ML VIAL SC SCH (10:16)
[2024-08-21] MEDS: Aspirin 81 mg Enteric Coated Tablet PO SCH (10:21)
[2024-08-21] MEDS: Senokot S 8.6-50 MG TAB PO SCH (10:22)
[2024-08-21 11:18] LABS: #Basophils 0.06 10x3/uL (0.0-0.2); #Eosinophils 0.04 10x3/uL (0.0-0.7); #Monocytes 1.61 10x3/uL (0.11-0.59); #Neutrophils 20.49 10x3/uL (1.40-6.50); %Basophils 0.2 % (0.0-1.0); %Eosinophils 0.2 % (0.0-10.0); %Lymphocytes 7.3 % (21.0-51.0); %Monocytes 6.7 % (0.0-10.0); %Neutrophils 85.1 % (42.0-75.0); Hematocrit 30.3 % (42.0-52.0); Hemoglobin 10.3 g/dL (14.0-18.0); Mean Corpuscular Hemoglobin 32.9 pg (27.0-31.0); Mean Corpuscular Volume 96.8 fL (78.0-98.0); Platelet Count 296 10x3/uL (130-400); Red Blood Cell (RBC) Count 3.13 mill/uL (4.70-6.10); White Blood Cell (WBC) Count 24.09 10x3/uL (4.8-10.8)
[2024-08-21 12:05] LABS: Glucose 107 mg/dL (83-110)
[2024-08-21] MEDS ORDERED: cefTRIAXone Sodium 2,000 MG in Syringe 0 ML IVPB SCH (16:00)
[2024-08-21] MEDS: Digoxin 0.5 MG/2 ML AMP SLOW IVP SCH (17:31)
[2024-08-21 17:46] LABS: Glucose 128 mg/dL (83-110)
[2024-08-21] MEDS: Diltiazem HCl/D5W 125 MG in Premix 1 BAG IVPB SCH (19:05)
[2024-08-21] MEDS: cefTRIAXone\\ROCEPHIN 2 GM in Sodium Chloride 0.9% 100 ML IVPB SCH (21:59)
[2024-08-21 22:19] LABS: Glucose 155 mg/dL (83-110)
[2024-08-22 04:17] LABS: #Basophils 0.05 10x3/uL (0.0-0.2); #Eosinophils 0.08 10x3/uL (0.0-0.7); #Monocytes 0.93 10x3/uL (0.11-0.59); #Neutrophils 21.66 10x3/uL (1.40-6.50); %Basophils 0.2 % (0.0-1.0); %Eosinophils 0.3 % (0.0-10.0); %Lymphocytes 6.0 % (21.0-51.0); %Monocytes 3.8 % (0.0-10.0); %Neutrophils 88.9 % (42.0-75.0); Hematocrit 30.6 % (42.0-52.0); Hemoglobin 10.1 g/dL (14.0-18.0); Mean Corpuscular Hemoglobin 32.2 pg (27.0-31.0); Mean Corpuscular Volume 97.5 fL (78.0-98.0); Platelet Count 296 10x3/uL (130-400); Red Blood Cell (RBC) Count 3.14 mill/uL (4.70-6.10); White Blood Cell (WBC) Count 24.37 10x3/uL (4.8-10.8)
[2024-08-22 04:33] VITALS: BMI 21.2
[2024-08-22 04:42] LABS: Anion Gap 14 mmol/L (10-20); BUN (Urea Nitrogen) 48 mg/dL (8.4-25.7); Calc. Creatinine Clearance 33 mL/min (70-130); Calcium 7.9 mg/dL (7.8-10.44); Carbon Dioxide 17 mmol/L (23-31); Chloride 115 mmol/L (98-107); Glucose 197 mg/dL (83-110); Potassium 3.2 mmol/L (3.5-5.1); Sodium 143 mmol/L (136-145)
[2024-08-22 07:38] LABS: Glucose 186 mg/dL (83-110)
[2024-08-22 11:56] LABS: Glucose 128 mg/dL (83-110)
[2024-08-22 18:15] LABS: Glucose 184 mg/dL (83-110)
[2024-08-22 19:46] VITALS: BMI 21.2
[2024-08-23 04:48] LABS: Glucose 178 mg/dL (83-110)
[2024-08-23 09:59] LABS: #Basophils 0.04 10x3/uL (0.0-0.2); #Eosinophils 0.03 10x3/uL (0.0-0.7); #Monocytes 0.82 10x3/uL (0.11-0.59); #Neutrophils 16.67 10x3/uL (1.40-6.50); %Basophils 0.2 % (0.0-1.0); %Eosinophils 0.2 % (0.0-10.0); %Lymphocytes 7.1 % (21.0-51.0); %Monocytes 4.3 % (0.0-10.0); %Neutrophils 87.6 % (42.0-75.0); Hematocrit 28.7 % (42.0-52.0); Hemoglobin 9.9 g/dL (14.0-18.0); Mean Corpuscular Hemoglobin 32.5 pg (27.0-31.0); Mean Corpuscular Volume 94.1 fL (78.0-98.0); Platelet Count 310 10x3/uL (130-400); Red Blood Cell (RBC) Count 3.05 mill/uL (4.70-6.10); White Blood Cell (WBC) Count 19.03 10x3/uL (4.8-10.8)
[2024-08-23 10:24] LABS: ALT (SGPT) 15 U/L (Less than 45); AST (SGOT) 28 U/L (11-34); Albumin 2.3 g/dL (3.1-4.5); Alkaline Phosphatase 78 U/L (40-110); Anion Gap 16 mmol/L (10-20); BUN (Urea Nitrogen) 32 mg/dL (8.4-25.7); Bilirubin, Total 0.4 mg/dL (0.3-1.2); Calc. Creatinine Clearance 38 mL/min (70-130); Calcium 7.9 mg/dL (7.8-10.44); Carbon Dioxide 17 mmol/L (23-31); Chloride 116 mmol/L (98-107); Globulin 3.7 g/dL (2.4-3.5); Glucose 172 mg/dL (83-110); Potassium 2.8 mmol/L (3.5-5.1); Sodium 146 mmol/L (136-145)
[2024-08-23] MEDS: Potassium Chloride 10 MEQ in Premix 1 BAG IVPB SCH ×2 (16:31→22:13)
[2024-08-23] MEDS: Apixaban 2.5 MG TAB PO SCH (21:24)
[2024-08-24 04:48] LABS: #Basophils Less than 0.03 10x3/uL (0.0-0.2); #Eosinophils 0.13 10x3/uL (0.0-0.7); #Monocytes 0.83 10x3/uL (0.11-0.59); #Neutrophils 11.13 10x3/uL (1.40-6.50); %Basophils 0.1 % (0.0-1.0); %Eosinophils 0.9 % (0.0-10.0); %Lymphocytes 11.4 % (21.0-51.0); %Monocytes 6.0 % (0.0-10.0); %Neutrophils 80.6 % (42.0-75.0); Hematocrit 27.0 % (42.0-52.0); Hemoglobin 9.5 g/dL (14.0-18.0); Mean Corpuscular Hemoglobin 32.3 pg (27.0-31.0); Mean Corpuscular Volume 91.8 fL (78.0-98.0); Platelet Count 317 10x3/uL (130-400); Red Blood Cell (RBC) Count 2.94 mill/uL (4.70-6.10); White Blood Cell (WBC) Count 13.83 10x3/uL (4.8-10.8)
[2024-08-24 05:15] LABS: ALT (SGPT) 15 U/L (Less than 45); AST (SGOT) 25 U/L (11-34); Albumin 2.1 g/dL (3.1-4.5); Alkaline Phosphatase 74 U/L (40-110); Anion Gap 11 mmol/L (10-20); BUN (Urea Nitrogen) 20 mg/dL (8.4-25.7); Bilirubin, Total 0.6 mg/dL (0.3-1.2); Calc. Creatinine Clearance 42 mL/min (70-130); Calcium 7.7 mg/dL (7.8-10.44); Carbon Dioxide 20 mmol/L (23-31); Chloride 112 mmol/L (98-107); Globulin 3.5 g/dL (2.4-3.5); Glucose 217 mg/dL (83-110); Potassium 2.5 mmol/L (3.5-5.1); Sodium 140 mmol/L (136-145)
[2024-08-24] MEDS ORDERED: Electrolyte Replacement Protocol 1 EACH FS SCH (05:30)
[2024-08-24 05:45] LABS: Magnesium 1.6 mg/dL (1.6-2.6)
[2024-08-24] MEDS: Magnesium 2 GM/50 ML(in water) 2 GM in Premix 1 BAG IVPB SCH (10:22)
[2024-08-24 12:48] LABS: Magnesium 2.3 mg/dL (1.6-2.6)
[2024-08-25 05:41] LABS: #Basophils Less than 0.03 10x3/uL (0.0-0.2); #Eosinophils 0.31 10x3/uL (0.0-0.7); #Monocytes 0.78 10x3/uL (0.11-0.59); #Neutrophils 7.00 10x3/uL (1.40-6.50); %Basophils 0.2 % (0.0-1.0); %Eosinophils 3.1 % (0.0-10.0); %Lymphocytes 18.2 % (21.0-51.0); %Monocytes 7.7 % (0.0-10.0); %Neutrophils 69.4 % (42.0-75.0); Hematocrit 25.9 % (42.0-52.0); Hemoglobin 9.0 g/dL (14.0-18.0); Mean Corpuscular Hemoglobin 32.7 pg (27.0-31.0); Mean Corpuscular Volume 94.2 fL (78.0-98.0); Platelet Count 298 10x3/uL (130-400); Red Blood Cell (RBC) Count 2.75 mill/uL (4.70-6.10); White Blood Cell (WBC) Count 10.08 10x3/uL (4.8-10.8)
[2024-08-25 05:53] LABS: ALT (SGPT) 15 U/L (Less than 45); AST (SGOT) 26 U/L (11-34); Albumin 2.0 g/dL (3.1-4.5); Alkaline Phosphatase 73 U/L (40-110); Anion Gap 11 mmol/L (10-20); BUN (Urea Nitrogen) 16 mg/dL (8.4-25.7); Bilirubin, Total 0.5 mg/dL (0.3-1.2); Calc. Creatinine Clearance 44 mL/min (70-130); Calcium 7.5 mg/dL (7.8-10.44); Carbon Dioxide 20 mmol/L (23-31); Chloride 108 mmol/L (98-107); Globulin 3.4 g/dL (2.4-3.5); Glucose 192 mg/dL (83-110); Magnesium 2.0 mg/dL (1.6-2.6); Potassium 3.0 mmol/L (3.5-5.1); Sodium 136 mmol/L (136-145)
[2024-08-25 09:30] LABS: Glucose 209 mg/dL (83-110)
[2024-08-25] MEDS: Vancomycin (BATCH) 2.5 GM/500 ML BAG IVPB SCH (10:43)
[2024-08-25] MEDS: Magnesium 2 GM/50 ML(in water) 2 GM in Premix 1 BAG IVPB SCH (11:16)
[2024-08-25] MEDS: Potassium Chloride 20 MEQ in Premix 1 BAG IVPB SCH (11:16)
[2024-08-25] MEDS: metFORMIN 500 MG TAB PO SCH (21:00)
[2024-08-25] MEDS ORDERED: Vancomycin 1 GM in Premix 1 BAG IVPB SCH (21:00)
[2024-08-26 04:35] LABS: #Basophils 0.03 10x3/uL (0.0-0.2); #Eosinophils 0.41 10x3/uL (0.0-0.7); #Monocytes 0.71 10x3/uL (0.11-0.59); #Neutrophils 6.51 10x3/uL (1.40-6.50); %Basophils 0.3 % (0.0-1.0); %Eosinophils 4.2 % (0.0-10.0); %Lymphocytes 20.3 % (21.0-51.0); %Monocytes 7.2 % (0.0-10.0); %Neutrophils 65.9 % (42.0-75.0); Hematocrit 27.2 % (42.0-52.0); Hemoglobin 9.4 g/dL (14.0-18.0); Mean Corpuscular Hemoglobin 31.9 pg (27.0-31.0); Mean Corpuscular Volume 92.2 fL (78.0-98.0); Platelet Count 311 10x3/uL (130-400); Red Blood Cell (RBC) Count 2.95 mill/uL (4.70-6.10); White Blood Cell (WBC) Count 9.87 10x3/uL (4.8-10.8)
[2024-08-26 04:49] LABS: Anion Gap 9 mmol/L (10-20); BUN (Urea Nitrogen) 16 mg/dL (8.4-25.7); Calc. Creatinine Clearance 47 mL/min (70-130); Calcium 7.3 mg/dL (7.8-10.44); Carbon Dioxide 19 mmol/L (23-31); Chloride 108 mmol/L (98-107); Glucose 105 mg/dL (83-110); Potassium 3.4 mmol/L (3.5-5.1); Sodium 133 mmol/L (136-145)
[2024-08-26] MEDS: Pantoprazole 40 MG DR.TAB PO SCH (10:21)
[2024-08-26] MEDS: Potassium Bicarbonate/Cit Ac 20 MEQ TAB PO SCH (10:21)
[2024-08-26] MEDS: Sodium Bicarbonate Tab 325 MG TAB PO SCH (14:14)
[2024-08-26 15:51] LABS: Magnesium 2.0 mg/dL (1.6-2.6)
[2024-08-26] MEDS: Magnesium 2 GM/50 ML(in water) 2 GM in Premix 1 BAG IVPB SCH (22:18)
[2024-08-27 04:31] LABS: Anion Gap 10 mmol/L (10-20); BUN (Urea Nitrogen) 18 mg/dL (8.4-25.7); Calc. Creatinine Clearance 51 mL/min (70-130); Calcium 7.3 mg/dL (7.8-10.44); Carbon Dioxide 19 mmol/L (23-31); Chloride 107 mmol/L (98-107); Glucose 103 mg/dL (83-110); Potassium 3.5 mmol/L (3.5-5.1); Sodium 132 mmol/L (136-145)
[2024-08-27] MEDS: Sodium Bicarbonate Tab 325 MG TAB PO SCH (09:29)
[2024-08-27 12:32] VITALS: BP 135/65; TEMP 98.5
[2024-08-27] MEDS: Lansoprazole 30 MG/10 ML UDCUP PO SCH (12:32)
[2024-08-27] MEDS ORDERED: metFORMIN 500 MG TAB PO SCH (17:00)
== END 2024-08-27 16:55 | DRG 871 ==
LOC: ERS 18:51 → 2NO 23:42
PROVIDERS: ADMIT Internal Medicine; ATTEND Family Medicine
PROC: 3E03329 Introduction of Other Anti-infective into Peripheral Vein, Percutaneous Approach (ICD-10-PCS; principal; 2024-08-21)
PROC: 0T9B70Z Drainage of Bladder with Drainage Device, Via Natural or Artificial Opening (ICD-10-PCS; 2024-08-22)
DX: A41.1 Sepsis due to other specified staphylococcus (principal); G93.41 Metabolic encephalopathy; N39.0 Urinary tract infection, site not specified; N17.9 Acute kidney failure, unspecified; E87.20 Acidosis, unspecified; E87.0 Hyperosmolality and hypernatremia; I47.19 Other supraventricular tachycardia; Z66 Do not resuscitate; I48.0 Paroxysmal atrial fibrillation; K21.9 Gastro-esophageal reflux disease without esophagitis; E78.00 Pure hypercholesterolemia, unspecified; K52.89 Other specified noninfective gastroenteritis and colitis; K56.41 Fecal impaction; R13.10 Dysphagia, unspecified; R65.20 Severe sepsis without septic shock; R00.1 Bradycardia, unspecified; I12.9 Hypertensive chronic kidney disease with stage 1 through stage 4 chronic kidney disease, or unspecified chronic kidney disease; E11.22 Type 2 diabetes mellitus with diabetic chronic kidney disease; N18.30 Chronic kidney disease, stage 3 unspecified; F03.90 Unspecified dementia, unspecified severity, without behavioral disturbance, psychotic disturbance, mood disturbance, and anxiety; N40.1 Benign prostatic hyperplasia with lower urinary tract symptoms; R33.8 Other retention of urine; E87.6 Hypokalemia; Z98.41 Cataract extraction status, right eye; Z98.42 Cataract extraction status, left eye; Z86.73 Personal history of transient ischemic attack (TIA), and cerebral infarction without residual deficits; Z88.0 Allergy status to penicillin; Z98.890 Other specified postprocedural states; Z79.82 Long term (current) use of aspirin; Z79.899 Other long term (current) drug therapy; Z79.84 Long term (current) use of oral hypoglycemic drugs; Z79.4 Long term (current) use of insulin; Z87.891 Personal history of nicotine dependence
CPT/HCPCS: 36415; 36416; 71045; 74018; 74177; 74230; 80048; 80053; 81001; 82010; 82805; 82947; 83605; 83690; 83735; 84100; 84145; 84484; 85025; 87040; 87077; 87086; 87186; 93005; 93306; 94760; 96365; 96367; J0692; J0696; J1160; J1644; J1815; J3475; J3480; J7030; J7070; Q9967